=== PATIENT | female | born 1930 | race Caucasian/White ===

== ENCOUNTER → 2016-10-29 | Outpatient (CLI) | payer MEDICARE, OTHER ==
[~2016-10-29] MED LIST: 8 HOUR650 MG PO; ACIDOPHILUS-PE1 EACH PO; ATIVAN 0.5MG0.5 MG PO; BIOFREEZE89 ML TOP; CALMOSEPTINE OI71 GM TOP; CARMEX TOP; FLEXERIL PO; HYDRODIURIL25 MG PO; K-TAB 10MEQ10 MEQ PO; LIDOCAINE TOP; LOMOTIL1 TAB PO; LOVENOX 4040 MG/0.4 SUB-Q; NIFEREX-150) (150 MG PO; NORCO 5-325 TA1 EACH PO; NYSTATIN PO; OCUVITE WITH L1 EACH PO; OSCAL + D500 MG PO; PEPCID20 MG PO; PEPTO BISMOL LIQ1 ML PO; VITAMIN B-121000 MCG PO; [UNRECOGNIZED DRUG - OTHER] PO
[2016-10-29 13:34] LABS: INR - (THERAPEUTIC) 1.01 (0.92-1.07); PROTIME 10.6 SECONDS (9.8-11.4)
== END | disposition disaster alternative care site (69) ==
LOC: GOPD 10-28 15:30
PROVIDERS: Radiology Diagnostic Radiology
PROC: 0PS43ZZ Reposition Thoracic Vertebra, Percutaneous Approach (ICD-10-PCS; principal; 2016-10-29)
PROC: 0PU43JZ Supplement Thoracic Vertebra with Synthetic Substitute, Percutaneous Approach (ICD-10-PCS; 2016-10-29)
DX: M48.54XA Collapsed vertebra, not elsewhere classified, thoracic region, initial encounter for fracture (principal); I25.10 Atherosclerotic heart disease of native coronary artery without angina pectoris; E11.9 Type 2 diabetes mellitus without complications; M19.90 Unspecified osteoarthritis, unspecified site; K21.9 Gastro-esophageal reflux disease without esophagitis; J44.9 Chronic obstructive pulmonary disease, unspecified; I10 Essential (primary) hypertension; Z85.3 Personal history of malignant neoplasm of breast
CPT/HCPCS: C1713; J0690; J2001; J2250; J3010; J7030